=== PATIENT | female | born 2000 | race Caucasian/White ===

== ENCOUNTER 2023-07-19 11:41 | Emergency (ER) | payer MEDICAID, SELFPAY ==
--- NOTE | ~2023-07-19 | CT_ITS ---
EXAMINATION: CT soft tissue neck w con DATE: 07/19/2023 15:12 INDICATION: Possible peritonsillar abscess TECHNIQUE: Computed tomography (CT) of the neck was performed with 75 mL Omnipaque-350 intravenous co ntrast. The dose-length product was 351.34 mGy-cm. Automated exposure control and iterative reconstru ction technique were employed. COMPARISON: None FINDINGS: There is mild enlargement of the left lingual tonsils with mild oral pharyngeal and nasopha ryngeal narrowing. No peritonsillar abscess. No abnormality of the epiglottis. Lung apices are normal . No significant vascular abnormality. Visualized intracranial contents are normal. There is bilatera l cervical lymphadenopathy, left greater than right, likely reactive. Mild mucosal thickening of the maxillary and ethmoid sinuses. IMPRESSION: 1. No evidence of peritonsillar abscess. Findings compatible with tonsillitis. 2: Cervical lymphadenopathy, likely reactive. Reviewed, dictated and finalized at location A. TWISTER WINDER
[2023-07-19 11:56] VITALS: BP 117/87; PULSE 125; RESP 18; TEMP 36.8; O2SAT 100
--- NOTE | 2023-07-19 14:08 | ED.GENADULT ---
HPI - General Adult General Chief complaint: Unspecified Stated complaint: sore throat Time Seen by Provider: 07/19/23 14:08 Source: patient Mode of arrival: ambulatory Limitations: no limitations History of Present Illness HPI narrative: Sintia is a 22-year-old female patient presenting to the clinic today with complaints of sore throat for 2-3 weeks. She reports that she had finished amoxicillin and a round of steroids approximately 1 week ago and then noticed that her symptoms were getting worse after taking the medications. Voice is muffled and she is having difficulty swallowing. She went to the urgent care today and was prompted to come into the emergency room for evaluation. No stridor or drooling. Related Data Allergies Allergy/AdvReac Type Severity Reaction Status Date / Time NKDA Allergy Mild Uncoded 11/15/08 19:14 Review of Systems Review of Systems: Pertinent positives per HPI. Patient denies any fever, chills, rash, headache, visual changes, dizziness, cough, shortness of breath, chest pain, palpitations, nausea, vomiting, diarrhea, constipation, abdominal pain, or any urinary issues. PMFSH Comments At the time of my signature, I reviewed and agree with the nursing past medical, surgical, social, and family history. There is no relevant family history pertinent to the patient complaint. Exam Narrative: General: Well-developed, well nourished, in no apparent distress Head: Normocephalic, atraumatic Eyes: Pupils equally round and reactive to light bilaterally, EOM intact, sclera and conjunctive clear, no discharge, lids normal Ears: TMs intact and clear, ear canals clear, no drainage, grossly hearing normal. Nose: Nares patent, no discharge, no inflammation, no sinus tenderness. Mouth: Oral pharynx red with bilateral tonsillar enlargement and exudate to tonsils. Tonsils are almost touching the uvula, good dentition, MMM. Neck: Supple, trachea midline, enlargement of bilateral anterior cervical nodes, no thyroid masses or goiter palpable. Cardio: Regular rate and rhythm, s1 and s2 normal, no murmur appreciated. Resp: Clear to auscultation bilaterally, no rhonchi, rales, wheezing or rubs Course Course Emergency Course: Portions of this record may have been created with voice recognition software. Vital Signs Vital signs: Vital Signs Temperature 36.8 C 07/19/23 11:56 Pulse Rate 125 H 07/19/23 11:56 Respiratory Rate 18 07/19/23 11:56 Blood Pressure 117/87 07/19/23 11:56 Pulse Oximetry 100 07/19/23 11:56 Temperature 36.8 C 07/19/23 11:56 Pulse Rate 102 H 07/19/23 15:41 Respiratory Rate 16 07/19/23 15:41 Blood Pressure 114/64 07/19/23 15:41 Pulse Oximetry 100 07/19/23 15:41 Vital signs reviewed Medical Decision Making MDM Narrative Medical decision making narrative: At the time of visit patient is resting on the exam table. CT of soft tissue neck shows no sign of peritonsillar abscess or epiglottitis. Likely a acute tonsillitis. Strep and mono testing was negative. White blood cell count is 12.9 with a left-sided shift. Will treat for acute infectious tonsillitis. Rocephin 1 g IV piggyback was given in the ER. Will send patient home with Augmentin and prednisone. Supportive measures were discussed with the patient she voiced understanding the discharge instructions and agrees to treatment plan. Return precautions were reviewed Differential Diagnosis Differential Diagnosis: URI, strep pharyngitis, mono, peritonsillar abscess, acute tonsillitis, epiglottitis Vital Signs Vital Signs: Vital Signs Temperature 36.8 C 07/19/23 11:56 Pulse Rate 125 H 07/19/23 11:56 Respiratory Rate 18 07/19/23 11:56 Blood Pressure 117/87 07/19/23 11:56 Pulse Oximetry 100 07/19/23 11:56 Temperature 36.8 C 07/19/23 11:56 Pulse Rate 102 H 07/19/23 15:41 Respiratory Rate 16 07/19/23 15:41 Blood Pressure 114/64 07/19/23 15:41 Pulse Oxi
[2023-07-19 15:05] LABS: Estimated CRCL calculation 125 ml/min; Estimated Glomerular Filt Rate > 60
[2023-07-19 15:41] VITALS: BP 114/64; PULSE 102; RESP 16; O2SAT 100
[2023-07-19 15:55] LABS: Basophils Percent Auto 0.2 % (0.2-1.2); Eosinophils Percent Auto 0.2 % (0-4.4); Hematocrit 39.7 % (37.0-47.0); Hemoglobin 13.4 g/dL (12.0-15.0); Immature Granulocyte Absolute 0.05 K/mm3 (0.00-0.031); Immature Granulocyte Percent A 0.4 % (0-0.5); Lymphocytes Absolute Auto 0.77 K/mm3 (0.9-3.2); Mean Corpuscular HGB Conc 33.8 g/dl (32-36); Mean Corpuscular Hemoglobin 29.8 pg (26-34); Mean Corpuscular Volume 88.2 fl (80-100); Mean Platelet Volume 10.9 fl (7.4-10.4); Monocytes Absolute Auto 1.1 K/mm3 (0.1-0.6); Monocytes Percent Auto 8.8 % (2.6-8.5); Neutrophils Absolute Auto 10.9 K/mm3 (1.3-6.7); Neutrophils Percent Auto 84.4 % (45.5-73.1); Platelet Count Result 200 k/mm3 (150-375); Red Cell Distribution Width 12.3 % (11.5-14.5); White Blood Count 12.9 K/mm3 (4.5-10.0)
[2023-07-19 16:04] LABS: Strep Group A RT-PCR NOT DETECTED (Negative)
[2023-07-19 16:11] LABS: Alanine Aminotransferase 17 U/L (6-35); Albumin Level 4.5 g/dL (3.5-5.1); Alkaline Phosphatase 70 U/L (38-126); Anion Gap 12 mmol/L (8-16); Aspartate Amino Transferase 24 U/L (14-36); Bilirubin,Total 0.8 mg/dL (0.2-1.3); Blood Urea Nitrogen 5 mg/dL (7-17); Calcium 9.3 mg/dL (8.4-10.2); Carbon Dioxide 24 mmol/L (22-30); Chloride 101 mmol/L (98-107); Estimated CRCL calculation 109 ml/min; Estimated Glomerular Filt Rate > 60; Glucose 85 mg/dL (65-110); Sodium 137 mmol/L (137-145)
[2023-07-19 16:31] LABS: Monoscreen Negative (Negative); Negative Monotest Control Negative (Negative); Positive Monotest Control Positive (Positive)
[2023-07-19 18:24] VITALS: BP 122/68; PULSE 84; RESP 16; O2SAT 99
== END 2023-07-19 18:25 | disposition home or self-care (01) ==
PROVIDERS: Emergency Provider Nurse Practitioner Family
DX: J03.90 Acute tonsillitis, unspecified (principal)
CPT/HCPCS: 70491; 80053; 85025; 86308; 87651; 96365; 99284; J0696; Q9967

== ENCOUNTER 2023-08-03 12:30 | Observation (INO) | payer MEDICAID, SELFPAY ==
--- NOTE | ~2023-08-03 | CT_ITS ---
CT scan of the Neck Technique: 2.5 mm axial scans were obtained through the neck after intravenous administration of 75 c c Omnipaque 350. Coronal and sagittal reconstructions of the neck were obtained. Dose reduction techn ique was used on this scan by utilizing automated exposure control and iterative reconstruction techn ique. The dose-length product (DLP) was 457.28 mGy-cm. Clinical History: Pain COMPARISON: 07/19/2023 Findings: There is bilateral cervical lymphadenopathy, predominantly level 2. Several small, nonenlarged jugulo - digastric and posterior cervical lymph nodes are noted bilaterally. Parapharyngeal spaces appear no rmal bilaterally. The parotid and submandibular glands appear normal. There is mild tonsillar prominence, which could reflect tonsillitis. No peritonsillar abscess. The thyroid gland appears normal. Images of the lung apices reveal no abnormalities. Impression: Possible tonsillitis. Bilateral cervical lymphadenopathy, presumably reactive, largest at level 2. Reviewed, dictated and finalized at [facility]. 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 Bilateral cervical lymphadenopathy, presumably reactive, largest at level 2.
[2023-08-03 12:52] VITALS: BP 95/67; PULSE 108; RESP 18; TEMP 36.7; O2SAT 99
[2023-08-03 13:09] LABS: Hematocrit 42.5 % (37.0-47.0); Hemoglobin 14.1 g/dL (12.0-15.0); Mean Corpuscular HGB Conc 33.2 g/dl (32-36); Mean Corpuscular Hemoglobin 29.2 pg (26-34); Mean Platelet Volume 10.9 fl (7.4-10.4); Platelet Count Result 260 k/mm3 (150-375); Red Blood Count 4.83 M/mm3 (4.2-5.4); Red Cell Distribution Width 12.6 % (11.5-14.5); White Blood Count 23.6 K/mm3 (4.5-10.0)
[2023-08-03 13:21] LABS: Alanine Aminotransferase 14 U/L (6-35); Albumin Level 4.3 g/dL (3.5-5.1); Alkaline Phosphatase 66 U/L (38-126); Anion Gap 7 mmol/L (8-16); Aspartate Amino Transferase 20 U/L (14-36); Bilirubin,Total 0.8 mg/dL (0.2-1.3); Blood Urea Nitrogen 5 mg/dL (7-17); Carbon Dioxide 26 mmol/L (22-30); Chloride 104 mmol/L (98-107); Estimated CRCL calculation 125 ml/min; Estimated Glomerular Filt Rate > 60; Glucose 116 mg/dL (65-110); Potassium 3.6 mmol/L (3.4-5.0); Sodium 137 mmol/L (137-145)
[2023-08-03 13:33] LABS: Band Neutrophils Percent 7 % (0-6); Lymphocytes Absolute Manual 2.36 K/mm3 (1.1-4.5); Monocytes Absolute Manual 1.65 K/mm3 (0.1-0.90); Monocytes Percent Manual 7 % (3-9); Neutrophils Absolute Manual 19.58 K/mm3 (1.7-7.2); Neutrophils Percent Manual 76 % (46-73); Platelet Estimate Adequate (Adequate); Total Cells Counted 100
[2023-08-03 13:34] LABS: Anisocytosis 1+ (NORMAL); Schistocytes None Seen (NORMAL)
[2023-08-03 13:44] LABS: Strep Group A RT-PCR NOT DETECTED (Negative)
[2023-08-03] MEDS: SODIUM CHLORIDE 0.9% IV 1,000 ML 999 ML IV CONT (14:05)
[2023-08-03] MEDS: MORPHINE SULFATE (*CRX) 2 MG/ML INJ IV PUSH (14:06)
--- NOTE | 2023-08-03 14:25 | ED.GENADULT ---
HPI - General Adult General Chief complaint: Unspecified Stated complaint: sore throat Time Seen by Provider: 08/03/23 13:09 History of Present Illness HPI narrative: patient presents the emergency department with recurrent sore throat and difficulty swallowing. This is her 3rd episode of pharyngitis in the past 6 weeks. She has been diagnosed with strep and treated with antibiotics and steroids in the past. She normally gets better is feeling 100% for a few days and then rebounds. She was recently treated for strep. Yesterday started having throat pain and swelling again. She has a muffled voice. Has difficulty opening her mouth fully due to the pain and swelling. Denies fevers during this episode. Was seen in urgent care today and advised to come to the emergency department for CT scan Related Data Allergies Allergy/AdvReac Type Severity Reaction Status Date / Time No Known Drug Allergies Allergy Verified 08/03/23 13:47 Review of Systems Review of Systems: negative except what is documented in the HPI Exam Narrative: GENERAL: Well-appearing, well-nourished, and in no acute distress. HEAD: Normocephalic, atraumatic. EYES: PERRLA and EOMI. ENT: Nares clear, no rhinorrhea or epistaxis. Mucous membranes moist. bilateral pharyngeal swelling, left more than the right NECK: Supple. CHEST: Clear to auscultation. No respiratory distress. HEART: tachycardia ABDOMEN: Soft, nontender, nondistended. EXTREMITIES: Normal range of motion. No edema. SKIN: Warm, dry, no rash. NEURO: No focal deficits. Alert and oriented x3. PSYCH: Normal mood and affect. Course Vital Signs Vital signs: Vital Signs Temperature 36.7 C 08/03/23 12:52 Pulse Rate 108 H 08/03/23 12:52 Respiratory Rate 18 08/03/23 12:52 Blood Pressure 95/67 L 08/03/23 12:52 Pulse Oximetry 99 08/03/23 12:52 Oxygen Delivery Room Air 08/03/23 12:52 Temperature 36.7 C 08/03/23 12:52 Pulse Rate 95 08/03/23 18:24 Respiratory Rate 17 08/03/23 18:24 Blood Pressure 119/77 08/03/23 18:24 Pulse Oximetry 99 08/03/23 18:24 Oxygen Delivery Room Air 08/03/23 12:52 Medical Decision Making MDM Narrative Medical decision making narrative: strep negative but white blood cell count 23. Patient was initially tachycardic upon arrival. She has failed outpatient treatment twice already. Will admit for further evaluation of ENT and IV antibiotic. Strep negative however presentation consistent with bacteria. IV antibiotics and blood cultures ordered Vital Signs Vital Signs: Vital Signs Temperature 36.7 C 08/03/23 12:52 Pulse Rate 108 H 08/03/23 12:52 Respiratory Rate 18 08/03/23 12:52 Blood Pressure 95/67 L 08/03/23 12:52 Pulse Oximetry 99 08/03/23 12:52 Oxygen Delivery Room Air 08/03/23 12:52 Temperature 36.7 C 08/03/23 12:52 Pulse Rate 95 08/03/23 18:24 Respiratory Rate 17 08/03/23 18:24 Blood Pressure 119/77 08/03/23 18:24 Pulse Oximetry 99 08/03/23 18:24 Oxygen Delivery Room Air 08/03/23 12:52 Lab Data 08/03/23 13:02 08/03/23 13:02 Labs: Lab Results 08/03/23 Range/Units 13:02 WBC 23.6 H (4.5-10.0) K/mm3 RBC 4.83 (4.2-5.4) M/mm3 Hgb 14.1 (12.0-15.0) g/dL Hct 42.5 (37.0-47.0) % MCV 88.0 (80-100) fl MCH 29.2 (26-34) pg MCHC 33.2 (32-36) g/dl RDW 12.6 (11.5-14.5) % Plt Count 260 (150-375) k/mm3 MPV 10.9 H (7.4-10.4) fl Immature Gran % (Auto) Not Reportable Neut % (Auto) Not Reportable Lymph % (Auto) Not Reportable Carter % (Auto) Not Reportable Eos % (Auto) Not Reportable Baso % (Auto) Not Reportable Lymph # (Auto) Not Reportable Carter # (Auto) Not Reportable Eos # (Auto) Not Reportable Baso # (Auto) Not Reportable Abs Immat Gran (auto) Not Reportable Absolute Neuts (auto) Not Reportable Absolute Nucleated RBC Not Reportable Total Counted 100 Neutrophi
[2023-08-03] MEDS: cefTRIAXone 2 GM/NS 100 ML 2 GM/100 ML BAG IVPB (18:20)
[2023-08-03 18:24] VITALS: BP 119/77; PULSE 95; RESP 17; O2SAT 99
[2023-08-03 18:34] LABS: Lactic Acid Reflex 0.8 mmol/L (0.7-2.0)
--- NOTE | 2023-08-03 21:08 | PM.IMHP ---
H&P: HPI History of Present Illness Date/Time: 08/03/23 17:15 Chief Complaint: Sore throat. Narrative: This is a very pleasant 22-year-old female without significant medical history presented to the emergency department via private vehicle for evaluation of sore throat. The patient provides the following history. She typically gets tonsillitis 1 or 2 times a year however this will be her 3rd bout with the same in the past 6 weeks. She has been on 2 rounds of antibiotics and each time she feels better for only a short period before her symptoms return. It has been 3 days since she last finished a round of antibiotics and a short burst of steroids and once again her tonsils are swollen and sore. She is having difficulties swelling due to the pain and has not been eating much. Today she felt like she was even having hard time swallowing her own saliva. She has also been fatigued and reports all over body aches. She denies fever, chills, sweats, nausea, vomiting, rash, joint swelling, and ear pain. 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 She was afebrile on arrival to the emergency department. Labs were significant for a WBC count of 23.6 with 7% bands, lactic acid 0.80. CT of the neck showed possible tonsillitis in bilateral cervical lymphadenopathy. She tested negative for group a strep. She received dexamethasone 10 mg IV x1 and 2 g ceftriaxone and she is being admitted in this setting for further treatment and ENT consultation. Review of Systems Review of Systems: Twelve systems were reviewed and are negative except for as per HPI. [facility] Past Medical History Medical History (Updated 08/03/23 @ 22:45 by Amee Javier PA-C) No significant medical problems Surgical History Surgical History (Updated 08/03/23 @ 22:36 by Amee Javier PA-C) No history of previous surgery Family History Family History (Updated 08/03/23 @ 22:37 by Amee Javier PA-C) Other Family history non-contributory Social History Social History (Updated 08/03/23 @ 22:37 by Amee Javier PA-C) Social History: The patient lives in [place]. 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 No alcohol, tobacco, or substance use. Surrogate medical decision maker: Bernard Girard, father. Code status: Full code. Meds Home Medications and Allergies Home Medications Medication Instructions Recorded Confirmed Type amoxicillin 600 mg-potassium 7.5 ml PO Q12H 10 days #150 mL 07/19/23 Rx clavulanate 42.9 mg/5 mL oral suspension prednisolone 15 mg/5 mL oral 45 mg (15 mL) PO DAILY 5 days #75 07/19/23 Rx solution mL Allergies Allergy/AdvReac Type Severity Reaction Status Date / Time No Known Drug Allergies Allergy Verified 08/03/23 13:47 Vital Signs Vital Signs - 24 hr 08/03/23 12:52 08/03/23 18:24 Temperature 98.0 F Pulse Rate 108 H 95 Respiratory Rate 18 17 Blood Pressure 95/67 L 119/77 Pulse Oximetry 99 99 Oxygen Delivery Room Air Exam Narrative: General: Well-developed, mildly ill-appearing female sitting up in bed no acute distress. HEENT: PERRL, EOMI. Sclera anicteric. Oral mucosa moist. Tonsils are enlarged and almost touching. Oropharynx is erythematous. Neck: Supple. Tender anterior cervical and submandibular lymphadenopathy, left greater than right. No stridor. Respiratory: Lungs are clear to auscultation bilaterally. Cardiovascular: Regular rate and rhythm with S1-S2. Gastrointestinal: Abdomen is soft, nontender, and nondistended with positive bowel sounds. Skin: Warm and dry. No rash or lesions on limited exam. Extremities: No cyanosis, clubbing, or edema. Radial and pedal pulses intact. Neurological: Alert. Cranial nerves 2-12 are grossly intact. No gross focal deficits to casual conversation. Psychiatric: Pleasant and cooperative with normal mood and affect. Judgment and insight intact. H&P: Results Labs Labs: Short CBC
[2023-08-03 22:05] VITALS: BP 111/70; PULSE 89; RESP 16; TEMP 36.8; O2SAT 98
--- NOTE | 2023-08-03 22:41 | ADMGEN ---
This patient, Sintia Ortega, was admitted to 3 [facility] Surg Room 320-01. Patient/family oriented to hospital policies and general routines including ID bracelet, bed and alarms, visiting hours, pain management, procedures, bathroom and other care routines, personal items, smoking policy, room service/diet, and visiting hours. Information on how to activate the Rapid Response Team has been discussed. Patient/Family are encouraged to report perceived risks to care and to ask questions if they do not understand what they are told or what they should do.
[2023-08-03 22:55] VITALS: BP 102/61; PULSE 73; RESP 16; TEMP 36.1; O2SAT 98
[2023-08-03 23:39] LABS: Influenza A QL RT-PCR Negative (Negative); Influenza B QL RT-PCR Negative (Negative); SARS-CoV-2 RNA PCR Negative (Negative)
[2023-08-04 06:00] VITALS: BP 105/67; PULSE 75; RESP 18; TEMP 36.2; O2SAT 99
[2023-08-04 06:56] LABS: Hematocrit 40.2 % (37.0-47.0); Mean Corpuscular HGB Conc 32.3 g/dl (32-36); Mean Corpuscular Hemoglobin 29.1 pg (26-34); Mean Corpuscular Volume 90.1 fl (80-100); Mean Platelet Volume 12.4 fl (7.4-10.4); Platelet Count Result 292 k/mm3 (150-375); Red Blood Count 4.46 M/mm3 (4.2-5.4); Red Cell Distribution Width 12.7 % (11.5-14.5); White Blood Count 16.2 K/mm3 (4.5-10.0)
[2023-08-04 07:08] LABS: Anion Gap 10 mmol/L (8-16); Blood Urea Nitrogen 6 mg/dL (7-17); CRP 6.3 mg/dL (<1.0); Calcium 9.3 mg/dL (8.4-10.2); Carbon Dioxide 23 mmol/L (22-30); Chloride 106 mmol/L (98-107); Estimated CRCL calculation 125 ml/min; Estimated Glomerular Filt Rate > 60; Glucose 109 mg/dL (65-110); Potassium 4.4 mmol/L (3.4-5.0); Sodium 139 mmol/L (137-145)
[2023-08-04 08:00] VITALS: O2SAT 99
--- NOTE | 2023-08-04 10:24 | WPDCN ---
Assessment and Plan Assessment and plan (1) Peritonsillar abscess: Code(s): J36 - Peritonsillar abscess Status: Acute Assessment and Plan: would recommend Decadron 6 mg q.8 hours IV continue IV antibiotics. Will re-evaluate this p.m.. Likely consider I and D of the left peritonsillar region [facility] Data of Consult Date/Time: 08/04/23 10:24 Requesting Physician: Donte Chaves MD Primary Care Provider: Adebayo Nicholson MD Consult Narrative Narrative: Sintia Ortega is a 22 year old female With recurrent tonsillitis CT personally reviewed I think there may be a left-sided peritonsillar abscess. 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 No alcohol, tobacco, or substance use. Surrogate medical decision maker: Bernard Ortega, father. Code status: Full code. Smoking status: Never smoker Alcohol intake: never Substance use: never Do You Feel Safe in your Home?: Yes Lack of Transportation: No Lack of Food: Never True Current Housing: I Have Housing Concerned About Future Housing: No Difficulty Paying Gas/Electric Bills: No Difficulty Paying for Meds: No Currently Unemployed: No Education: Bachelor's Degree Difficulty w/ Childcare or Family Care: No Spiritual care concerns: No Meds Home Medications and Allergies Home Medications Medication Instructions Recorded Confirmed Type No Home Medications 08/04/23 08/04/23 History Allergies Allergy/AdvReac Type Severity Reaction Status Date / Time No Known Drug Allergies Allergy Verified 08/03/23 13:47 Vital Signs Vital Signs - 24 hr 08/03/23 12:52 08/03/23 18:24 08/03/23 22:05 Temperature 36.7 C 36.8 C Pulse Rate 108 H 95 89 Respiratory Rate 18 17 16 Blood Pressure 95/67 L 119/77 111/70 Pulse Oximetry 99 99 98 Oxygen Delivery Room Air 08/03/23 22:55 08/03/23 22:30 08/04/23 06:00 Temperature 36.1 C L 36.2 C L Pulse Rate 73 75 Respiratory Rate 16 18 Blood Pressure 102/61 105/67 Pulse Oximetry 98 99 Oxygen Delivery Room Air 08/04/23 08:00 Temperature Pulse Rate Respiratory Rate Blood Pressure Pulse Oximetry 99 Oxygen Delivery Room Air Exam Narrative: Mild left peritonsillar fullness mild deviation of the uvula right side looks okay when compared to the left Results Labs 08/04/23 06:11 08/04/23 06:11 Labs: Short CBC 08/03/23 08/04/23 Range/Units 13:02 06:11 WBC 23.6 H 16.2 H (4.5-10.0) K/mm3 Hgb 14.1 13.0 (12.0-15.0) g/dL Hct 42.5 40.2 (37.0-47.0) % Plt Count 260 292 (150-375) k/mm3 BMP 08/03/23 08/04/23 13:02 06:11 Sodium 137 139 Potassium 3.6 4.4 Chloride 104 106 Carbon Dioxide 26 23 BUN 5 L 6 L Creatinine 0.60 L 0.60 L Glucose 116 H 109 Calcium 9.0 9.3 Liver Function 08/03/23 Range/Units 13:02 Total Bilirubin 0.8 (0.2-1.3) mg/dL AST 20 (14-36) U/L ALT 14 (6-35) U/L Alkaline Phosphatase 66 (38-126) U/L Albumin 4.3 (3.5-5.1) g/dL
--- NOTE | 2023-08-04 11:26 | PM.IMPN ---
Progress Note: A&P Assessment and Plan (1) Pharyngitis: Qualifiers: Pharyngitis/tonsillitis etiology: unspecified etiology Qualified Code(s): J02.9 - Acute pharyngitis, unspecified Code(s): J02.9 - Acute pharyngitis, unspecified Status: Acute Assessment and Plan: Continue Rocephin and Decadron started 08/03 (2) Tonsillitis: Code(s): J03.90 - Acute tonsillitis, unspecified Status: Acute Assessment and Plan: See above, appreciate ENT consult, may need I&D (3) Systemic inflammatory response syndrome: Code(s): R65.10 - Systemic inflammatory response syndrome (SIRS) of non-infectious origin without acute organ dysfunction Status: Acute Plan DVT prophylaxis with SCDs GI prophylaxis not indicated Code status full code 08/03: The patient presented to the emergency department for evaluation of sore throat as detailed in HPI. Labs, imaging, EKG, and all reports were personally reviewed. This will be her 3rd bout of pharyngitis in the last 6 weeks. She has been on 2 rounds of antibiotics and 1 burst of prednisone though her symptoms returned shortly thereafter. She is afebrile but has a robust white count of 23.6 with 7% bands on labs today. Lactic acid levels within normal limits. Vital signs are stable. Her throat pain and swelling have improved after receiving dexamethasone we will continue with a couple more doses of IV dexamethasone. We will also continue ceftriaxone. Blood and throat cultures have been obtained. Dr. Osborne consulted for further recommendations. Subjective Date/time seen: 08/04/23 11:26 Interval history: 22-year-old female without significant medical history presented to the emergency department via private vehicle for evaluation of sore throat and being treated for peritonsillar abscess. No overnight events noted. No chest pain or shortness of breath. No nausea, vomiting or diarrhea. No fevers or chills. Sore throat much improved, no difficulty with po intake. Review of Systems Review of Systems: 12 point review of systems was assessed and was negative except as noted in the HPI Exam Narrative: General: No acute distress, alert and oriented per baseline HEENT: Atraumatic, normocephalic, mucous membranes moist CV: Regular rate and rhythm, S1, S2 Lungs: Clear to auscultation bilaterally, no rales or crackles noted, no wheezes, good air entry Abdomen: Soft, nontender, nondistended Extremities: Normal to inspection Skin: No rashes noted, no lesions or wounds seen Psych: Euthymic, normal affect Objective Data Vital Signs Vital Signs: Vital Signs - 24 hr 08/03/23 12:52 08/03/23 18:24 08/03/23 22:05 Temperature 98.0 F 98.3 F Pulse Rate 108 H 95 89 Respiratory Rate 18 17 16 Blood Pressure 95/67 L 119/77 111/70 Pulse Oximetry 99 99 98 Oxygen Delivery Room Air 08/03/23 22:55 08/03/23 22:30 08/04/23 06:00 Temperature 97.0 F L 97.2 F L Pulse Rate 73 75 Respiratory Rate 16 18 Blood Pressure 102/61 105/67 Pulse Oximetry 98 99 Oxygen Delivery Room Air 08/04/23 08:00 Temperature Pulse Rate Respiratory Rate Blood Pressure Pulse Oximetry 99 Oxygen Delivery Room Air Intake/Output Intake/Output: Intake & Output 08/01/23 08/02/23 08/03/23 08/04/23 23:59 23:59 23:59 23:59 Intake Total 1100 680 Balance 1100 680 Meds/Results Medications: Active Medications Generic Name Dose Route Start Last Admin Trade Name Freq PRN Reason Stop Dose Admin Acetaminophen 650 mg 08/03/23 22:42 Acetaminophen 325 Mg Tablet PO Q6H PRN Mild Pain (1-3) or Fever Dexamethasone Sodium Phosphate 6 mg 08/04/23 10:15 08/04/23 10:29 Dexamethasone Sod Phos Inj 10 Mg/Ml 1 Ml Vial IV PUSH 08/05/23 02:16 6 mg Q8H CHALO Administration Ceftriaxone Sodium 1 gm in 50 mls @ 100 mls/hr 08/04/23 19:00 Rocephin 1 Gm/Ns 50 Ml IVPB Q24H CHALO Radiology Results: IT
[2023-08-04 14:00] VITALS: BP 106/60; PULSE 93; RESP 18; TEMP 36.8; O2SAT 96
--- NOTE | 2023-08-04 19:54 | PM.DS ---
DS: Admitting Diagnosis Discharge Date 08/04/2023 Admitting Diagnosis Sore throat DS: Discharge Diagnosis Discharge Diagnosis (1) Pharyngitis: Qualifiers: Pharyngitis/tonsillitis etiology: unspecified etiology Qualified Code(s): J02.9 - Acute pharyngitis, unspecified Code(s): J02.9 - Acute pharyngitis, unspecified Status: Acute Assessment and Plan: Continue Rocephin and Decadron started 08/03 (2) Tonsillitis: Code(s): J03.90 - Acute tonsillitis, unspecified Status: Acute Assessment and Plan: See above, appreciate ENT consult, may need I&D (3) Systemic inflammatory response syndrome: Code(s): R65.10 - Systemic inflammatory response syndrome (SIRS) of non-infectious origin without acute organ dysfunction Status: Acute Plan DVT prophylaxis with SCDs GI prophylaxis not indicated Code status full code 08/03: The patient presented to the emergency department for evaluation of sore throat as detailed in HPI. Labs, imaging, EKG, and all reports were personally reviewed. This will be her 3rd bout of pharyngitis in the last 6 weeks. She has been on 2 rounds of antibiotics and 1 burst of prednisone though her symptoms returned shortly thereafter. She is afebrile but has a robust white count of 23.6 with 7% bands on labs today. Lactic acid levels within normal limits. Vital signs are stable. Her throat pain and swelling have improved after receiving dexamethasone we will continue with a couple more doses of IV dexamethasone. We will also continue ceftriaxone. Blood and throat cultures have been obtained. Dr. Osborne consulted for further recommendations. DS: Summary Hospital Course Hospital Course: 22-year-old female without significant medical history presented to the emergency department via private vehicle for evaluation of sore throat and being treated for peritonsillar abscess. Given Decadron 6 mg q.8 hours x3 doses, I&D performed at bedside 08/04 by ENT. Patient was discharged in stable condition with close outpatient follow-up on oral antibiotics. Please see above and med rec for details. Time Spent with Patient Time attestation: Total time spent providing and/or coordinating discharge services: Exam Narrative: General: No acute distress, alert and oriented per baseline HEENT: Atraumatic, normocephalic, mucous membranes moist CV: Regular rate and rhythm, S1, S2 Lungs: Clear to auscultation bilaterally, no rales or crackles noted, no wheezes, good air entry Abdomen: Soft, nontender, nondistended Extremities: Normal to inspection Skin: No rashes noted, no lesions or wounds seen Psych: Euthymic, normal affect DS: Data Data Completed and Pending Labs on day of discharge: Labs from last 24 hours 08/04/23 08/03/23 06:11 22:58 WBC 16.2 H RBC 4.46 Hgb 13.0 Hct 40.2 MCV 90.1 MCH 29.1 MCHC 32.3 RDW 12.7 Plt Count 292 MPV 12.4 H Sodium 139 Potassium 4.4 Chloride 106 Carbon Dioxide 23 Anion Gap 10 BUN 6 L Creatinine 0.60 L Estim Creat Clear Calc 125 Estimated GFR > 60 Glucose 109 Calcium 9.3 Magnesium 2.0 C-Reactive Protein 6.3 H Influenza A (RT-PCR) Negative Influenza B (RT-PCR) Negative SARS-CoV-2 RNA (RT-PCR) Negative Preliminary micro results at discharge 08/03/23 18:14 Blood Culture - Preliminary Blood 08/03/23 18:14 Blood Culture - Preliminary Blood Discharge Plan Discharge Attending physician on discharge: Anamika Ribera Consulting providers: Mauro Osborne; Amee Javier; Tr Dias Discharging Clinician: Anamika Ribera Patient Disposition: Home, Self-Care Activity: as tolerated Diet: as tolerated and regular Patient Instructions: Antibiotic Form, Clindamycin (By mouth), Peritonsillar Abscess (DC) Stand Alone Forms: General Discharge Information Follow-up/Referrals: Mauro Osborne MD [Physician]
[2023-08-04] MEDS: LIDO 1%/EPINEPHRINE 1:100,000 50 ML VIAL (19:58)
--- NOTE | 2023-08-04 19:58 | PC.NURSE ---
Dylon GOLDMAN present at bedside, bedside I&D done to left tonsil, culture sent, new orders to discharge home on PO antibiotics.
[2023-08-04 20:00] VITALS: BP 110/78; PULSE 73; RESP 18; TEMP 36.6; O2SAT 100
--- NOTE | 2023-08-10 12:23 | P.PCNBED_ITS ---
Procedures Other Procedures Procedure 1: Other Procedure: I and D left peritonsillar abscess. Everything all the consents obtained. A total 5 cc 1% lidocaine 1 100,000 parts epinephrine injected left peritonsillar region. Eleven blade used to make incision in the mucosa. Cady clamps uti lized to get into the abscess. Copious amounts of purulence drained. This was also cultured. Patient tolerated the procedure well no complications.
== END 2023-08-04 20:55 | disposition home or self-care (01) ==
LOC: ANHED 13:14 → ANH3MEDSUR 21:00
PROVIDERS: Emergency Medicine; Physician Assistant; Admitting Provider Internal Medicine; Emergency Provider Emergency Medicine; PCP Emergency Medicine; Visit Provider Student in an Organized Health Care Education/Training Program
DX: J36 Peritonsillar abscess (principal); R65.10 Systemic inflammatory response syndrome (SIRS) of non-infectious origin without acute organ dysfunction; D72.829 Elevated white blood cell count, unspecified; R00.0 Tachycardia, unspecified; Z20.822 Contact with and (suspected) exposure to COVID-19; Z79.52 Long term (current) use of systemic steroids; Z79.899 Other long term (current) drug therapy
CPT/HCPCS: 36415; 70491; 80048; 80053; 83605; 83735; 85025; 85027; 86140; 87040; 87070; 87075; 87076; 87185; 87205; 87636; 87651; 96361; 96365; 96375; 96376; 99285; G0378; G0379; J0696; J1100; J2270; J7030; Q9967

== ENCOUNTER 2023-09-22 00:47 | Day surgery (SDC) | payer MEDICAID, SELFPAY ==
[2023-09-16 12:46] VITALS: BMI 22.1
--- NOTE | 2023-09-16 12:51 | PC.NURSE ---
Report to the Outpatient Waiting Room, entrance under the green pavilion located off [facility], at time 0700 on date 09/22/23. Planned Procedure Time: 0900. Time changes happen often and if your time is changed the preop area will call you the afternoon before. - You and your visitor will be asked to self-screen and do not enter if you have any COVID symptoms. - A mask is optional within the hospital at this time. Patients may have clear liquids (water, carbonated beverages, clear teas, apple juice) until 3 hours prior to surgery with a maximum of 20 ounces. - No food from midnight until time of surgery Take the following medications with a SIP of water the morning of surgery: N/A DO NOT STOP ANY OF YOUR OTHER PRESCRIPTION MEDICATIONS PRIOR TO SURGERY ?EXCEPT THE FOLLOWING Medications to discontinue per physician: N/A Date to take last dose: N/A Please no make-up, nail upper sorbian, hairspray, perfume, deodorant, or body powder the day of surgery. No jewelry (including any body piercings) or valuables the day of surgery, leave them at home. Please take a shower or bath the night before, or the morning of, surgery with an antibacterial soap. Wear comfortable, loose fitting clothing. - Jewelry must be removed prior to entering the operating room. Rings and piercings that are not removed may be cut off. - The hospital will not accept responsibility for valuables. - Please leave all valuables, including medications, at home the day of surgery. If you are going home after surgery, a licensed shuttle driver must drive you home. - NO public transportation without another adult if you receive anesthesia. - We recommend that an adult stay with you for 24 hours following discharge. - We also recommend that you do not drive, make important decision, drink alcoholic beverages, or take any drugs that were not prescribed by your health care provider for at least 24 hours after your discharge time. Follow any additional instructions given to you from your surgeon. If you or anyone in your household have experienced Covid symptoms in the past week, please notify your surgeon or the nurse liaison at the phone number below for possible testing. Telephone instructions given to PT - YO COMER and asked if any additional questions and then verbalized understanding. Patient advised to call surgeon office or pre surgery nurse liaison [phone] if any additional questions.
--- NOTE | 2023-09-20 16:19 | PM.IMHP ---
H&P: HPI History of Present Illness Date/Time: 09/20/23 16:19 Chief Complaint: Recurrent tonsillitis snoring adenoid hypertrophy Narrative: planned procedure Review of Systems Review of Systems: All systems reviewed & are unremarkable except as noted in HPI and below PMFSH Past Medical History Medical History (Updated 08/27/23 @ 17:11 by Mauro Osborne MD) No significant medical problems Surgical History Surgical History (Updated 08/03/23 @ 22:36 by Amee Javier PA-C) No history of previous surgery Family History Family History (Updated 08/27/23 @ 15:10 by Mira Juarez CMA) Father Hypertension Mother Depression Heart disease Cerebrovascular accident Sibling Asthma Other Family history non-contributory Social History Social History Social History: The patient lives in [place]. She works at a local [employer]. No alcohol, tobacco, or substance use. Surrogate medical decision maker: Bernard Vanessar, father. Code status: Full code. Smoking status: Never smoker Alcohol intake: current Alcohol use details: EVERY COUPLE MONTHS Substance use: current Substance use type: marijuana Other substance usage details: ONCE A MONTH Do You Feel Safe in your Home?: Yes Lack of Transportation: No Lack of Food: Never True Current Housing: I Have Housing Concerned About Future Housing: No Difficulty Paying Gas/Electric Bills: No Difficulty Paying for Meds: No Currently Unemployed: No Education: Bachelor's Degree Difficulty w/ Childcare or Family Care: No Living arrangements: with family Spiritual care concerns: No Meds Home Medications and Allergies Home Medications Medication Instructions Recorded Confirmed Type No Home Medications 09/16/23 09/16/23 History Allergies Allergy/AdvReac Type Severity Reaction Status Date / Time No Known Drug Allergies Allergy Unknown Verified 09/16/23 12:45 Exam Narrative: large tonsils large adenoid Assessment and Plan Assessment and plan (1) Snoring: Code(s): R06.83 - Snoring Status: Acute Assessment and Plan: plan or tonsillectomy adenoidectomy.? Risks discussed including bleeding infection damage to surrounding structures need for further procedures time-out 4 x 1 high risk narcotic use.? Postoperative bleeding 5%.? Failure to resolve symptoms note to tonsils or adenoids.? Damage to any structure of the clavicles by myself damage to any structure infection remains of anesthesia including vocal cord paralysis.? Change in taste change in swallow which could be permanent. (2) Adenoid hypertrophy: Code(s): J35.2 - Hypertrophy of adenoids Status: Acute (3) Recurrent tonsillitis: Code(s): J03.91 - Acute recurrent tonsillitis, unspecified Status: Acute (4) Peritonsillar abscess: Code(s): J36 - Peritonsillar abscess Status: Acute (5) Tonsillitis: Code(s): J03.90 - Acute tonsillitis, unspecified Status: Acute
[2023-09-22] VITALS (8 sets, daily range): BP systolic 99–121; BP diastolic 59–88; PULSE 59–93; RESP 12–20; TEMP 36.2–36.9; O2SAT 99–100
[2023-09-22] MEDS: ACETAMINOPHEN 500 MG TABLET 1000 MG PO (07:02)
--- NOTE | 2023-09-22 07:15 | WPDHPUPDATE1 ---
History and Physical Update Update Date/Time: 09/22/23 07:15 History and Physical has been reviewed, including an updated exam of the patient. There are NO changes in the patient's condition. Risks, benefits, and alternatives have been discussed and questions answered. Patient agrees to proceed with procedure.
[2023-09-22] MEDS: LACTATED RINGERS 1,000 ML 30 ML IV CONT ×2 (07:20→10:18)
--- NOTE | 2023-09-22 08:01 | WPDANESEPPF ---
Anes - Initial Pre Proc Eval Procedure: Operation Date: 09/22/23 09:00 Proposed Procedures p Tonsillectomy And Adenoidectomy - Mauro Osborne MD Date/Time: 09/22/23 08:01 Surgeon: Mauro Osborne MD Pre Op Diagnosis: recurrent tonsillitis, adenoid hypertrophy Patient Data Age: 22 Gender: F Height: 1.75 m Weight: 65.9 kg Last Vital Signs Temp 36.9 C 09/22/23 07:15 Pulse 83 09/22/23 07:15 Resp 16 09/22/23 07:15 BP 113/88 09/22/23 07:15 Pulse Ox 99 09/22/23 07:15 O2 Del Method Room Air 09/22/23 07:15 Allergies Allergy/AdvReac Type Severity Reaction Status Date / Time No Known Drug Allergies Allergy Unknown Verified 09/16/23 12:45 Home Medications Medication Instructions Recorded Confirmed Type No Home Medications 09/16/23 09/16/23 History Patient hx anesthesia problems: none Family hx anesthesia problems: none Results Review: All pre-operative results and documents have been reviewed as part of the pre-operative evaluation. [facility] Past Medical History Medical History No significant medical problems Surgical History Surgical History No history of previous surgery Family History Family History Father Hypertension Mother Depression Heart disease Cerebrovascular accident Sibling Asthma Other Family history non-contributory Social History Social History Social History: The patient lives in [place]. 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 No alcohol, tobacco, or substance use. Surrogate medical decision maker: Bernard Vanessar, father. Code status: Full code. Smoking status: Never smoker Alcohol intake: current Alcohol use details: EVERY COUPLE MONTHS Substance use: current Substance use type: marijuana Other substance usage details: ONCE A MONTH Do You Feel Safe in your Home?: Yes Lack of Transportation: No Lack of Food: Never True Current Housing: I Have Housing Concerned About Future Housing: No Difficulty Paying Gas/Electric Bills: No Difficulty Paying for Meds: No Currently Unemployed: No Education: Bachelor's Degree Difficulty w/ Childcare or Family Care: No Living arrangements: with family Spiritual care concerns: No Anes - Eval Final PreProcedure Day of Procedure 09/22/23 08:01 Patient weight: normal Heart: regular rate and rhythm Lungs: clear to auscultation Airway: Mallampati scale class II Neurological: alert and oriented Last oral intake: >/= 8 hours ASA classification: II Emergent: no Anesthetic plan: proceed Anesthesia type and monitoring: general ETT and standard monitoring Results Review: All pre-operative results and documents have been reviewed as part of the pre-operative evaluation. Informed Consent: The patient's anesthetic plan and its attendant risks and benefits were discussed with the patient/family/POA. Questions were solicited and answers provided to the satisfaction of the patient/family/POA.
--- NOTE | 2023-09-22 10:29 | W.PM.PROC2 ---
Procedure Note - Detailed Date of Procedure 09/22/23 Pre-op Diagnosis recurrent tonsillitis, adenoid hypertrophy Post-op Diagnosis Same Procedure Performed [place] Surgeon Mauro Osborne MD Anesthesia General Indications see above Findings bilateral tonsils were scarred in likely due to recurrent infections. Left side had abnormal tissue extending from the tonsil itself likely the previous I&D site into the neck there was purulence in the neck and again which was able to express out and irrigate. Abnormal tissue as well as tonsil sent separately fresh. Excess bleeding from that site not in excess of 10-15 cc. Description of Procedure Patient identified in preop consent verified. Patient brought to the operating room. Time-out performed. General anesthesia induced endotracheal tube secured airway. Patient prepped draped position procedure confirmed 2nd time-out performed. McIvor mouth gag inserted to reveal tonsils described above the more abnormal appearing tonsil left 1 was removed 1st see above for the description McIvor mouth gag then lowered to allow blood flow return the tongue right-sided then removed. Tonsils removed in the extracapsular plane using Bovie electrocautery at a setting of 810. Bleeding was controlled with bipolar as well as suction Bovie electrocautery setting of 10 and 12. After tonsils were out McIvor mouth gag was lowered reopened reveal no further bleeding. Red rubber catheters then inserted and suspended trans anteriorly. Adenoid pad viewed really nonexistent. Red rubber catheters removed McIvor mouth gag removed. Patient tolerated the procedure well. No complications. Total blood loss 15 cc. Care the patient given back to Anesthesiology. Patient has a T tolerated the procedure well taken to PACU I performed all dictated portions of the procedure. Estimated Blood Loss 15 Drains No Packing No Pathology Yes (Fresh, separate) Complications No immediate complications Condition Stable Disposition PACU [facility] Billing Surgery - Charge Forward: Surgery Billing
[2023-09-22] MEDS: fentaNYL CITRATE INJ (*CRX) 100 MCG/2 ML VIAL 25 MCG IV PUSH ×2 (10:44→10:52)
[2023-09-22] MEDS: ONDANSETRON INJ 4 MG/2 ML VIAL IV PUSH (11:16)
== END 2023-09-22 12:18 | disposition home or self-care (01) ==
PROVIDERS: PCP Emergency Medicine; Visit Provider Otolaryngology
PROC: (CPT 42826; principal; 2023-09-22 09:00)
DX: J35.01 Chronic tonsillitis (principal); F12.90 Cannabis use, unspecified, uncomplicated
CPT/HCPCS: 42826; 88108; 88184; 88185; 88304; A9270; J0330; J1100; J2250; J2405; J2704; J3010; J7120

== ENCOUNTER 2025-05-18 16:54 | Outpatient (CLI) | payer OTHER, MEDICAID, SELFPAY ==
--- OUTSIDE RECORDS SUMMARY | 2025-05-18 16:58 | XMS_ITS | Clinical Summary ---
Author Organization [facility] Address [address] [place] [address] Care Team Providers Care Strategy Intern Name Role Phone Christo Lorenz MD Primary Care Provider + Source Comments [email or web address],non-owned Affiliates and Associated Physician Practices is amultiple site organization consisting of ambulatory clinics and hospital sitesin [place], [place], [place] and [place]. This disclosure is being madepursuant to the Care Everywhere program and may not contain all information available regarding this patient. 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 Gender Identity Not on file Sexual Orientation Not on file Plan of Treatment Health Maintenance Due Date Last Done Comments HIV SCREENING 2014 HPV VACCINE (1 - 3-dose series) 2014 CHLAMYDIA/GONORRHEA SCREENING 2015 HEPATITIS C SCREENING 09/23/2017 DTAP/TDAP/TD VACCINES (1 - Tdap) 2018 HEPATITIS B VACCINE (1 of 3 - 19+ 3-dose series) 2018 PAP SMEAR 2020 DEPRESSION SCREENING 08/17/2024 COVID-19 VACCINE ( - 2023-2 5 season) 2025 INFLUENZA VACCINE (#1) 2025 ZOSTER VACCINE (1 of 2) 2049 HIB VACCINE Aged Out No longer eligi ble based on patient's age to complete this topic MENINGOCOCCAL (Group B) VACC INE SHARED DECISION-MAKING Aged Out No longer eligibl e based on patient's age to complete this topic MENINGOCOCCAL GROUPS A/C/Y/W VACCINE Aged Out No longer eligible b ased on patient's age to complete this topic PNEUMOCOCCAL VACCINE Aged Out No long er eligible based on patient's age to complete this topic Insurance [address] [place] [id number] MEDICAID - [place] SELF PAY NO INSURANCE Member Subscriber Plan / Payer (Ef fective for All Dates) Name:Sintia Ortega Member ID:Not on file Relation to Subscriber:Not on file Name:SHANNONSINTIA Subscriber ID:Not on file Address: [address] [place] [address] [address] [place] [id number] Payer ID:Not on file Group ID:Not on file Type:Self Pay Address: [place], [place] [address] [place] [id number] MEDICAID - [place] SELF PAY NO INSURANCE Member Subscriber Plan / Payer (Ef fective for All Dates) Name:Shannon Sintia Mario Member ID:Not on file Relation to Subscriber:Not on file Name:SINTIA ORTEGA Subscriber ID:Not on file Address: [address] [place] [address] [address] [place], [place] [id number] Payer ID:Not on file Group ID:Not on file Type:Self Pay Address: [place], [place] MEDICA[place] - [place] SELF PAY NO INSURANCE Member Subscriber Plan / Payer (Ef fective for All Dates) Name:Seaford, Sintia M Member ID:Not on file Relation to Subscriber:Not on file Name:SINTIA ORTEGA Subscriber ID:Not on file Address: [address] [place] [address] [address] [place] [address] Payer ID:Not on file Group ID:Not on file Type:Self Pay Address: [place], [place] [address] [place] [address] Care Teams Strategy Intern Relationship Specialty Start Date End Date Christo Lorenz MD [address] [place] [phone] PCP - General 04/08/11
--- OUTSIDE RECORDS SUMMARY | 2025-05-18 16:58 | XMS_ITS | Clinical Summary ---
Author Organization [facility] [place] [address] Address [address] [place] [phone] Care Team Providers Care Project Geophysicist Name Role Phone No, Physician Primary Care Provider Allergies No known active allergies Medications escitalopram (LEXAPRO) 10 mg tablet Take 0.5 tablets (5 mg total) by mouth daily 03/25/2021 Active hydrOXYzine (ATARAX) 25 mg tablet Take 1 tablet (25 mg total) by mouth 3 (three) times a day as needed 11/08/2020 Active Active Problems Problem Noted Date Diagnosed Date Acute pain of both knees 05/31/[address] 03/02/2018 Overview (08/03/2023): Last Assessment & Plan: Stable. 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 No concerns. GILMAR (generalized anxiety disorder) 09/08/2017 Overview (08/03/2023): Last Assessment & Plan: Suboptimal control. Pt tolerated lexapro without any side effects, will increase to 10 mg daily and see if this helps. Counseling encouraged. Ok to continue PRN hydroxyzine. All questions and concerns addressed this visit, pt agrees with plan of care. Last Assessment & Plan: Stable. Doing well off medications. Will monitor for now. Discussed counseling, meditation, good sleep etc. 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 Gender Identity Not on file Sexual Orientation Not on file Obstetrics History Last Filed Vital Signs Vital Sign Reading Time Taken Comments Blood Pressure 116/78 03/01/2024 4:15 PM CDT Pulse 76 03/01/2024 4:15 PM CDT Temperature 36.7 C (98.1 F) 03/01/2024 4:15 PM CDT Respiratory Rate 20 03/01/2024 4:15 PM CDT Oxygen Saturation 97% 03/01/2024 4:15 PM CDT Inhaled Oxygen Concentration - - Weight 66.7 kg (147 lb) 03/01/2024 4:15 PM CDT Height 172.7 cm (5' 8) 03/01/2024 4:15 PM CDT Body Mass Index 22.35 03/01/2024 4:15 PM CDT Plan of Treatment Health Maintenance Due Date Last Done Comments Cervical Cancer Screening 1999 Depression Screening 1999 Hepatitis C Screening 1999 Regular Well Visit/Exam 18-64 2017 HPV Vaccines (3 - 3-dose series) 05/18/2018 12/22/19 18, 11/16/2017 Influenza Vaccine (#1) 2025 , 07/10/2020, 05/30/2018, Additional history exists DTaP/Tdap/Td Vaccine (8 - Td or Tdap) 08/21/2032 08/21/2022, 10/14/2010, 01/23/2005, Additional history exists Hepatitis B Screening Completed 07/02/2000 , 02/21/2000, 1999 Pneumococcal vaccine <65 Completed 001, 10/22/2000, 05/04/2000, Additional history exists Varicella Vaccines Completed 10/06/2007, 10/22/[address] [place] [phone] [facility] Care Teams Project Geophysicist Relationship Specialty Start Date End Date No, Physician PCP - General 07/19/23
--- OUTSIDE RECORDS SUMMARY | 2025-05-18 16:58 | XMS_ITS | Encounter Summary ---
Author Organization [facility] Address [address] [address] Care Team Providers Care Men'S Basketball Coach Name Role Phone Christo Lorenz MD Primary Care Provider + Encounter Details Date Type Department Care Team (Late st Contact Info) Description 09/22/2023 Lab Requisition [facility] - Pathology Lab [address] [place] [address] Shawn Fry MD [address] [place] [address] Acute recurrent tonsillitis, unspecified Social History Tobacco Use Types Packs/Day Years Used Date Smoking Tobacco: Never Assessed Comments Unknown Sex and Gender Information Value Date Recorded Sex Assigned at Not on file Legal Sex Female 5:39 AM HEALTHCARE CONSULTING MANAGER Gender Identity Not on file Sexual Orientation Not on file documented as of this encounter Plan of Treatment Not on file documented as of this encounter Procedures Procedure Name Priority Date/Time Associated Diagnosis Comments FLOW CYTOMETRY TISSUE PANEL Routine 09/22/2023 10:00 AM HEALTHCARE CONSULTING MANAGER Acute recurrent tonsillitis, unspecified documented in this encounter Results * FLOW CYTOMETRY TISSUE PANEL (09/22/2023 10:00 AM HEALTHCARE CONSULTING MANAGER) Case Report Flow Cytometry Case: [id number] Authorizing Provider: Prince Fry MD Collected: 09/22/2023 10:00 AM Ordering Location: [facility] Pathology Lab Received: 09/22/2023 12:12 PM Pathologist: Delilah Lucas MD Specimen: Tonsil(s), A, RIGHT 09/22/2023 2:55 PM [facility] Final Diagnosis Tonsil, right, flow cytometric immunophenotypic analysis: - No evidence of non-Hodgkin lymphoma - See interpretation 09/22/2023 2:55 PM [facility] at [address] HEALTHCARE CONSULTING MANAGER Flow Cytometry Interpretation Viability: 86% B-cells: polytypic, kappa:lambda ratio 1.5:1 T-cells: no immunophenotypic aberrancy detected CD4:CD8 ratio 4:1 A cytospin prepared from the flow cytometry specimen has been reviewed for director quality systems purposes. 09/22/2023 2:55 PM [facility] Flow Cytometry Results Differential Result Comment Flow Cell Count /uL 85,500 Total Viability % 86.0 Lymphocytes % 99 Dim CD45 Region % 0 Monocytes % 0 Granulocytes % 1 09/22/2023 2:55 PM [facility] Reason for test Acute recurrent tonsillitis, unspecified 09/22/2023 2:55 PM [facility] Client Specimen ID # [id number] 09/22/2023 2:55 PM [facility] Number of markers 16 were performed. A-2 Flow CD2 A-3 Flow CD4 A-6 Flow CD1a A-8 Flow CD3 A-10 Flow CD10 A-12 Flow CD20 A-13 Flow CD23 A-4 Flow CD7 A-5 Flow CD8 A-7 Flow CD30 A-9 Flow CD5 A-11 Flow CD19 A-14 Flow CD34 A-15 Flow CD45 A-16 [place]+CD19+ A-17 Lambda+CD19+ 09/22/2023 2:55 PM [facility] Pathologist Location at [facility] 09/22/2023 2:55 PM [facility] Disclaimer Test performed at [facility], [address] [place] [address], [id number]. *The established laboratory minimum viability is 70%. Values below the minimum may result in the failure to find an abnormal population of cells. This test was developed and its performance characteristics determined by the Flow Cytometry Laboratory. It has not been cleared by the [place] Food and Drug Administration (FDA). The FDA has determined that such clearance or approval is not necessary. This test is used for clinical purposes. It should not be regarded as investigational or for research. This laboratory is regulated under the Clinical Laboratory Improvement Amendments of 1998 (CLIA) as a qualified to perform high complexity clinical testing. 09/22/2023 2:55 PM HEALTHCARE CONSULTING MANAGER [facility] Embedded Images 2:55 PM HEALTHCARE CONSULTING MANAGER [facility] Pathology/Cytolo gy SPECIMEN FROM TONSIL / Unknown 09/22/2023 10:00 AM HEALTHCARE CONSULTING MANAGER 09/22/2023 12:12 PM HEALTHCARE CONSULTING MANAGER Shawn Fry MD LAB - PATHOLOGY/CYT OLOGY ORDERABLES Final Result [facility] [address] [phone] documented in this encounter Visit Diagnoses Diagnosis Acute recurrent tonsillitis, unspecified documented in this encounter Care Teams Men'S Basketball Coach Relationship Specialty Start Date End Date Christo Lorenz MD [address] [place] [phone] PCP - General 04/08/11 documented as of this encounter
--- OUTSIDE RECORDS SUMMARY | 2025-05-18 16:58 | XMS_ITS | Clinical Summary ---
Author Organization [facility] Address [address] [place] [address] Care Team Providers Care Parker Name Role Phone None, Provider MD Primary Care Provider Unavaila ble None, Provider MD Unavailable Unavailable Allergies No known active allergies Medications escitalopram 10 MG tablet Take 5 mg by mouth daily. 03/25/2021 Active hydrOXYzine 25 MG tablet TAKE 1 TABLET BY MOUTH 3 TIMES DAILY NEEDED FOR ANXIETY 11/08/2020 Active Active Problems Problem Noted Date Diagnosed Date Acute pain of both knees 05/31/[address] 03/02/2018 Overview (05/31/2021): Last Assessment & Plan: Stable. Managed by soft metals engraver hand office. No concerns. GILMAR (generalized anxiety disorder) 09/08/2017 Overview (05/31/2021): Last Assessment & Plan: Suboptimal control. Pt tolerated lexapro without any side effects, will increase to 10 mg daily and see if this helps. Counseling encouraged. Ok to continue PRN hydroxyzine. All questions and concerns addressed this visit, pt agrees with plan of care. Comments Yes Resolved Problems Problem Noted Date Diagnosed Date Resolved Date Acute sore throat 11/05/2021 11/06/2021 Acute bacterial tonsillitis 11/05/2021 11/06/2021 Social History Tobacco Use Types Packs/Day Years Used Date Smoking Tobacco: Never Smokeless Tobacco: Never Alcohol Use Standard Drinks/Week Comments Never 0 (1 standard drink = 0.6 oz pur e alcohol) Comments Yes Sex and Gender Information Value Date Recorded Sex Assigned at Not on file Legal Sex Female 8:49 AM CDT Gender Identity Not on file Sexual Orientation Not on file Last Filed Vital Signs Vital Sign Reading Time Taken Comments Blood Pressure 116/78 11/11/2021 5:48 PM CDT Pulse 95 11/11/2021 5:48 PM CDT Temperature 37.1 C (98.7 F) 11/11/2021 5:48 PM CDT Respiratory Rate 16 11/11/2021 5:48 PM CDT Oxygen Saturation 98% 11/11/2021 5:48 PM CDT Inhaled Oxygen Concentration - - Weight 68.9 kg (152 lb) 11/11/2021 5:48 PM CDT Height 174 cm (5' 8.5) 11/11/2021 5:48 PM CDT Body Mass Index 22.78 11/11/2021 5:48 PM CDT Plan of Treatment Health Maintenance Due Date Last Done Comments Cervical Cancer Screening Pap Smear (Age 21 to 29) Every 3 Years 1999 Cervical Cancer Screening 1999 Annual Physical 2002 Hepatitis C 2017 DTaP, Tdap and Td Vaccines (7 - Td or Tdap) 10/14/2020 10/14/2010, 01/23/2005, 10/04/2003, Additional history exists COVID-19 Vaccine ( season) 2025 09/02/2021, 11/29/2020, 11/01/2020 Influenza Adult (#1) 2025 07/10/2020, 05/30/2018, 09/08/2017, Additional history exists RSV Immunization or 60+ Years (1 - 1-dose 75+ series) 2074 Hepatitis B Vaccines Completed 07/02/2000, 02/21/2000, 1999, Additional history exists Pneumococcal Vaccine: Pediatrics (0 to 5 Years) and At-Risk Patients (6 to 49 Years) Aged Out 12/28/2000, 10/22/2000, 05/04/2000, Additional history exists No longer eligible based on patient's age to complete this topic Meningococcal Vaccine Completed 01/18/2016, 011 HPV Vaccines Completed 05/04/2018, 02/2018, 11/16/2017 Meningococcal B Vaccine Aged Out No l onger eligible based on patient's age to complete this topic RSV Immunizations Under 20 Months Aged Out No longer eligible based on patient's age to complete this topic Insurance Care Teams Parker Relationship Specialty Start Date End Date None, Provider, PCP - General 11/05/21 None, Provider, 11/05/21
--- OUTSIDE RECORDS SUMMARY | 2025-05-18 16:58 | XMS_ITS | Encounter Summary ---
Author Organization [facility] Address [address] [place] [address] Care Team Providers Care Account Development Associate Name Role Phone Christo Lorenz MD Primary Care Provider + Encounter Details Date Type Department Care Team (Late st Contact Info) Description 09/22/2023 Lab Requisition [facility] - Pathology Lab [address] [place] [address] Shawn Fry MD [address] [place] [address] Acute recurrent tonsillitis, unspecified Social History Tobacco Use Types Packs/Day Years Used Date Smoking Tobacco: Never Assessed Comments Unknown Sex and Gender Information Value Date Recorded Sex Assigned at Not on file Legal Sex Female 5:39 AM CHECK SCALER Gender Identity Not on file Sexual Orientation Not on file documented as of this encounter Plan of Treatment Not on file documented as of this encounter Visit Diagnoses Diagnosis Acute recurrent tonsillitis, unspecified documented in this encounter Care Teams Account Development Associate Relationship Specialty Start Date End Date Christo Lorenz MD [address] [place] [phone] PCP - General 04/08/11 documented as of this encounter
[2025-05-18 17:29] LABS: Hematocrit 40.4 % (37.0-47.0); Hemoglobin 13.5 g/dL (12.0-15.0); Immature Granulocyte Percent A 0.3 % (0-0.5); Lymphocytes Absolute Auto 1.86 K/mm3 (0.9-3.2); Mean Corpuscular HGB Conc 33.4 g/dl (32-36); Mean Corpuscular Hemoglobin 29.6 pg (26-34); Mean Corpuscular Volume 88.6 fl (80-100); Nucleated Red Blood Cells Absolute Auto 0.000 K/mm3 (0.0-0.012); Nucleated Red Blood Cells Perc 0.0 % (0.0-0.2); Platelet Count Result 243 k/mm3 (150-375); Red Blood Count 4.56 M/mm3 (4.2-5.4); White Blood Count 7.2 K/mm3 (4.5-10.0)
[2025-05-18 17:59] LABS: Beta HCG Quantitative < 2.39 mIU/ML
[2025-05-18 19:05] LABS: Thyroid Stimulating Hormone Reflex 1.190 uIU/mL (0.465-4.68)
[2025-05-20 07:09] LABS: FSH 4.7 mIU/mL (.)
[2025-05-23 23:07] LABS: Free Testosterone (Direct) 0.9 pg/mL (0.0-4.2)
== END 2025-05-18 16:55 | disposition home or self-care (01) ==
LOC: ANHLAB 16:56
PROVIDERS: Visit Provider Obstetrics & Gynecology
DX: N92.6 Irregular menstruation, unspecified (principal); E28.8 Other ovarian dysfunction
CPT/HCPCS: 36415; 82627; 83001; 84144; 84146; 84270; 84402; 84403; 84443; 84702; 85025